=== PATIENT | male | born 1950 | race African-American/Black ===

== ENCOUNTER 2017-06-29 10:25 | Emergency (ER) | payer MEDICARE, MEDICAID ==
[~2017-06-29] VITALS: Ht 175.3 cm; Wt 107.0 kg
[2017-06-29] MEDS ORDERED: IBUPROFEN 800MG TABLET PO ONE (14:30)
[2017-06-29 16:02] VITALS: BP 170/91
== END 2017-06-29 16:03 | disposition home or self-care (01) ==
LOC: ER 13:17
DX: S92.355A Nondisplaced fracture of fifth metatarsal bone, left foot, initial encounter for closed fracture (principal); F17.200 Nicotine dependence, unspecified, uncomplicated; W01.0XXA Fall on same level from slipping, tripping and stumbling without subsequent striking against object, initial encounter; Y93.89 Activity, other specified; Y92.89 Other specified places as the place of occurrence of the external cause
CPT/HCPCS: 73610; 73630; 99284